=== PATIENT | male | born 1965 | race Caucasian/White ===

== ENCOUNTER 2023-11-08 08:33 | Outpatient (AMB) | payer OTHER, SELFPAY ==
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
[2023-11-08 08:39] VITALS: BP 118/78; PULSE 71; O2SAT 95; BMI 30.9
== END 2023-11-08 09:50 | disposition home or self-care (01) ==
PROVIDERS: PCP Internal Medicine; Visit Provider Nurse Practitioner Family
DX: H53.9 Unspecified visual disturbance (principal); R51.9 Headache, unspecified; G47.19 Other hypersomnia; R06.83 Snoring; R42 Dizziness and giddiness
CPT/HCPCS: 99204

== ENCOUNTER → 2023-11-08 08:33 | Outpatient (BNVA) | payer OTHER, SELFPAY | PROVIDERS: PCP Internal Medicine; Visit Provider Nurse Practitioner Family | DX: H53.9 Unspecified visual disturbance (principal); R51.9 Headache, unspecified; G47.19 Other hypersomnia; R06.83 Snoring; R42 Dizziness and giddiness | CPT/HCPCS: 99202 ==

== ENCOUNTER 2023-12-03 15:13 | Outpatient (REF) | payer BC, SELFPAY ==
--- NOTE | ~2023-12-03 | MR_ITS ---
EXAMINATION: MR BRAIN WITHOUT AND WITH CONTRAST CLINICAL INFORMATION: Headache COMPARISON: None TECHNIQUE: Multiplanar multisequence MR imaging of the brain was obtained without and following the administration of 9 mL Gadavist intravenous contrast. FINDINGS: There is no acute infarct on diffusion-weighted imaging. There is no intracranial hemorrhage on iron-sensitive imaging. No extra-axial collection or mass effect/herniation. Several scattered foci of T2/FLAIR hyperintense signal in the supratentorial white matter with frontal lobe predominance. The 7th and 8th cranial nerve complexes are symmetric in course, caliber, and enhancement characteristics. Major inner ear structures including the cochlea, semicircular canals, and vestibule are symmetric in morphology and demonstrate normal CSF signal. No enhancing intracanalicular or cerebellopontine angle mass lesion is visualized. No hydrocephalus. The ventricles are normal in morphology and size. No abnormal parenchymal or extra-axial enhancement. The major flow voids at the skull base are preserved. Partially empty sella. The cerebellar tonsils are normally positioned. The craniocervical junction is normal. Marrow signal is within normal limits. The visualized soft tissues are without significant abnormality. Right maxillary sinus retention cyst. Mild scattered paranasal sinus mucosal thickening. Small fluid in the right petrous apex. MR/MR head/brain wo/w con IMPRESSION: 1. Several scattered foci of T2/FLAIR hyperintense signal in the supratentorial white matter with frontal lobe predominance are nonspecific but can be seen in the setting of migraine and/or chronic microvascular ischemia. 2. Otherwise unremarkable contrast-enhanced MRI of the brain. Electronically signed by: Maco Lopez MD 12/19/2023 08:25 PM EDT
[2023-12-03] MEDS: gadobutroL 10 ML VIAL IVPUSH (16:21)
== END 2023-12-03 15:14 | disposition home or self-care (01) ==
LOC: HO.MRI 15:13
PROVIDERS: PCP Internal Medicine; Visit Provider Nurse Practitioner Family
DX: R51.9 Headache, unspecified (principal); H53.9 Unspecified visual disturbance; R42 Dizziness and giddiness
CPT/HCPCS: 70553; A9585

== ENCOUNTER 2024-05-15 09:04 | Outpatient (AMB) | payer BC, SELFPAY ==
[2024-05-15 09:05] VITALS: BP 110/70; PULSE 69; O2SAT 97; BMI 31.2
--- NOTE | 2024-05-15 09:05 | A.OFFVIS_ITS ---
Vital Signs 05/15/24 09:05 Height 5 ft 9 in Weight 211 lb BMI 31.2 BP 110/70 Blood Pressure Location Lt brachial Position Sitting Pulse 69 Pulse Source Pulse Oximeter Pulse Oximetry (%) 97 Oxygen Delivery Method Room Air Intake Visit Reasons: Follow Up 6mo Intake Note: Patient presents follow up Headache/Sleep. MRI in chart, HST scheduled for 06/13/24 Toys Inspector Required: No Allergies Penicillins Allergy (Mild, Verified 05/15/24 09:06) Rash Medication List - Last Reconciled 05/15/24 by NGOC Ramirez rizatriptan 5 - 10 mg (0.5 - 1 x 10 mg) PO Q2H PRN 30 days sumatriptan succinate 50 - 100 mg orally at onset of headache, may repeat in 2 hrs PRN; max 2 tabs per day or 4 tabs/week (may take with Ibuprofen) 30 days HPI Comments Details: Chief Complaint Concerns about effectiveness of current migraine treatment and MRI findings. History of Present Illness The patient is a 58-year-old male presenting with migraine with visual aura. Migraine to occur episodically, last attack in February- triggered by bright screen, and the attack prior was in the fall. Initial treatment with sumatriptan was partially effective, however the 2nd attack was not as responsive to sumatriptan even though taken at the earliest sign. Headaches often triggered by visual stimuli. Recent MRI revealed white matter changes, likely linked to migraines. No significant past head injuries documented. Underlying conditions include hypercholesterolemia and pre-diabetes, leading patient make dietary adjustments and achieve a recent weight reduction. patient had a recent comprehensive eye exam, which was reassuring terms of his visual aura symptoms. He has not yet had the home sleep study, due to miscommunication with our sleep department. He is scheduled for a home sleep study near future. interval headache alleviating factors: sumatriptan, naproxen, ibuprofen interval headache aggravating factors: bright lights, holiday stress, sporadic eating patterns Typical headache characteristics: Prodrome symptoms: denies Aura: Sees spots, flashes, blurry vision in his left eye x's a few minutes. Within 10 minutes headache starts. Pain intensity: severe, becomes more severe when sneezes, coughs, moves his head. Location, quality, characteristics: pressure in the mid-center of top of head. Associated symptoms: photophobia, not right in space dizziness, activity intolerance. Postdrome: none after 3-4 days. Triggers: stress Denies: Onset of headache triggered by positional changes, Valsalva, Exertion:, Sexual activity. Time of day: No specific time of day Duration and Frequency: Occurs 1-2 x's per month, and last 3-4 days Review of Systems - General: Reports weight loss of 10 pounds. - Neurological: Reports migraines with visual disturbances; denies focal neurological symptoms. - Endocrine: Reports borderline high blood sugar. Food The patient has been actively modifying his diet to address elevated cholesterol and pre-diabetes. Dietary changes include increased intake of healthier options and careful meal planning to regulate blood sugar levels. He reports a reduction in portion sizes and increased frequency of meals to balance metabolism. Employment - Regular international travel noted, impacting lifestyle habits. Diagnostic results - MRI: White matter lesions indicative of migraine-related changes, no masses detected. - Blood work: Elevated cholesterol and borderline glucose levels reported. - Sleep Study: Scheduled for next month. [facility] Surgical History History of back surgery H/O prostatectomy History of surgical removal of meniscus of knee Family History Father HTN (hypertension) Hyperlipidemia Heart disease Prostate CA Mother Stroke Social History Alcohol intake: current Patient Tobacco Use Status: Never used Tobacco Physical Exam Vital Signs: Last Vital Signs Pulse 69 05/15/24 09:05 BP 110/70 05/15/24 09:05 Pulse Ox 97 05/15/24 09:05 Oxygen Delivery Method Room Air 05/15/24 09:05 BMI result Body Mass Index 31.2 Const Orientation/consciousness: patient oriented x3 Resp Effort & Inspection: normal respiratory effort and able to speak in complete sentences Neuro General: patient oriented x3 Cranial nerves: Yes CN's II-XII intact bilaterally Cognition (Neuro): normal cognition Gait exam (Neuro): Normal gait present Motor exam (neuro): 5/5 motor strength present throughout Pupils: Normal pupillary reactivity/response: bilateral Psych Appearance: grossly normal Mental Status: mental status grossly normal Speech and movement: Normal speech and movement present Results Reviewed Results Reviewed: MR/MR head/brain wo/w con IMPRESSION: 1. Several scattered foci of T2/FLAIR hyperintense signal in the supratentorial white matter with frontal lobe predominance are nonspecific but can be seen in the setting of migraine and/or chronic microvascular ischemia. 2. Otherwise unremarkable contrast-enhanced MRI of the brain. Assessment & Plan Assessment & Plan (1) Visual aura: Code(s): H53.9 - Unspecified visual disturbance Category: Medical (2) Worsening headaches: Comment: Likely migraine w/ aura, vestibular migraine w/ aura, however need to exclude secondary causes d/t headache and visual aura started in pt's late 40s. Code(s): R51.9 - Headache, unspecified Category: Medical (3) Excessive daytime sleepiness: Comment: ESS 10 Code(s): G47.19 - Other hypersomnia Category: Medical (4) Snoring: Code(s): R06.83 - Snoring Category: Medical (5) Dizziness: Code(s): R42 - Dizziness and giddiness Category: Medical (6) Excessive daytime sleepiness: Comment: ESS 10 Code(s): G47.19 - Other hypersomnia Category: Medical (7) Snoring: Code(s): R06.83 - Snoring Category: Medical Plan Discussion Notes During our visit, we reviewed the MRI findings, highlighting the white matter changes likely associated with migraines, and reassured that these findings are common and generally asymptomatic. We discussed alternative migraine management with rizatriptan as a preferred option over sumatriptan for effectiveness, highlighting triptan limitations and alternative delivery systems if necessary. Examination of metabolic markers warranted and lifestyle modifications endorsed for cholesterol and pre-diabetes control. Risks associated with untreated sleep apnea were acknowledged, and a follow-up study has been scheduled. Patient instructed on dietary changes, medication adherence, and the strategy for using triptans, along with scenarios for medical follow-up. Patient was informed and verbally consented to the use of an ambient scribe for clinic note documentation during this visit. Patient Instructions - specific instructions as below - Continue dietary modifications to address hypercholesterolemia and blood sugar. - Monitor headache occurrences and response to rizatriptan. - Carry migraine medications when traveling. - Follow up with your primary care physician about blood sugar and cholesterol. - Attend the scheduled sleep study to evaluate for sleep apnea. - Contact the clinic if migraines worsen or triptan effectiveness declines. For overall headache management: * Optimize good self-care, including but not limited to maintaining a healthy diet, adequate fluid intake, adequate sleep, and engaging in regular physical activity. * Track headaches, especially after any treatment regimen changes. [employer] is one of many headache tracking apps. * Information previously shared on non-pharmacological interventions which may help to alleviate headache attack burden. * For light sensitivity: Patient may benefit from trying blue light filtering glasses, green glasses, green light therapy. * Monitor dizziness. * Future considerations: Vestibular tx. For acute headache treatment: Discussed importance of taking acute medications at the first sign of headache, however stressed importance of avoiding acute medication overuse (especially with combined headache medications). Hold Sumatriptan 100mg tab, 1/2 - 1 tab (50-100mg)- has not been consistently effective Trial Rizatriptan 10mg tab, 1/2 - 1 tab (5-10mg) at onset of headache, may repeat in 2 hours. Max of 2 tabs (200mg) per 24 hours. May adjunct with OTC Tylenol 650mg every 4 hours, Ibuprofen (liquigel) 600mg every 6 hours, or Naproxen (liquigel) 440mg every 12 hrs as needed. Potential adverse effects of triptans, include but are not limited to nausea, fatigue, chest tightness/tingling (usually passes within a few minutes), medication overuse headaches. Previous acute migraine medication trials: Sumatriptan 100 mg-not consistently effective Acute migraine medication contraindications: None at this time Future considerations: Sumatriptan nasal spray. Patient notes she would not be interested in sumatriptan injection at this point. For headache prevention medication: Patient may hold Riboflavin 400mg qam May hold Magnesium 400mg qhs Previous migraine prevention medication trials: None Migraine prevention medication contraindications: None at this time F/u upon review of above. Pt to follow-up in 6 months or sooner prn. Medications: New rizatriptan max 2 tabs per day or 4 tabs per week 5 - 10 mg (0.5 - 1 x 10 mg) PO Q2H PRN 12 tabs 3RF migraine headache 30 days Coding Level of Care Code Est Pt Level 4 (43669) Diagnoses Visual aura H53.9 Worsening headaches R51.9 Excessive daytime sleepiness G47.19 Snoring R06.83 Dizziness R42
--- OUTSIDE RECORDS SUMMARY | 2024-05-15 09:56 | XMS_ITS | Data Portability ---
Author Organization [employer], [address] Address [address] [place] [id number] Assessment No assessment recorded. Plan of Treatment Reminders Order Date Submit Date Provider Last Modified By Organization Details Last Modified Time Details Appointments None record ed. Lab None record ed. Referral None record ed. Procedures None record ed. Surgeries None record ed. Imaging None record ed. Medication Orders None record ed. Patient TargetsNo targets recorded. Patient InstructionsNo instructions recorded. Reason for Referral None Reported. Medical Equipment None Reported. Medications Name Sig Start Date Stop Date Status Note LastModified by Organization Details LastModified Time cyclobenzapri ne 10 mg tablet TAKE 1 TABLET BY MOUTH TWICE A DAY NEEDED DO NOT DRINK ALCOHOL OR DRIVE WHILE TAKING THIS active Not Available Not Available No t Available prednisone 20 mg tablet TAKE 3 TABLETS BY MOUTH DAILY active Not Available Not Available No t Available ciprofloxacin 500 mg tablet TAKE 1 TABLET BY MOUTH IN THE MORNING AND EVENING OF PROSTATE BIOPSY active Not Available Not Available No t Available sildenafil 100 mg tablet TAKE ONE TABLET BY MOUTH EVERY DAY NEEDED active Not Available Not Available No t Available ibuprofen 600 mg tablet TAKE 1 TABLET BY MOUTH TWICE A DAY NEEDED FOR PAIN active Not Available Not Available No t Available fluticasone propionate 50 mcg/actuation nasal spray,suspens ion SPRAY 1 SPRAY BY [address]AL ROUTE EVERY DAY active Not Available Not Available No t Available loratadine 10 mg tablet TAKE 1 TABLET BY MOUTH EVERY DAY active Not Available Not Available No t Available diazepam 5 mg tablet TAKE 1 TABLET BY MOUTH PRIOR TO PROCEDURE active Not Available Not Available No t Available alfuzosin ER 10 mg tablet,extend ed release 24 hr TAKE 1 TABLET BY MOUTH EVERYDAY AT BEDTIME active Not Available Not Available N ot Available tadalafil 20 mg tablet TAKE 1 TABLET BY MOUTH NEEDED active Not Available Not Available No t Available ProAir HFA 90 mcg/actuation aerosol inhaler INHALE 1 TO 2 PUFFS BY MOUTH EVERY 4 TO 6 HOURS NEEDED FOR COUGH active Not Available Not Available No t Available Vitals None Recorded Social History None recorded. Functional Status None recorded. Mental Status None recorded. Family History Nothing Reported. Medical History No medical history recorded. Past Encounters Encounter ID Performer Location Encounter Start Date Encounter Closed Date Diagnosis/Indication Diagnosis SNOMED-CT Code Diagnosis ICD10 Code Diagnosis Note [id number] [place] [address] 09/26/2021 10:53:58 09/26/2021 14:49:29 [id number] [place] [address] 03/25/2020 16:50:20 03/25/2020 19:25:18 Health Concerns Section Related Observation LastModified by Organization Detai ls LastModified Time None Recorded Concern Status LastModified by Organization Details LastModified Time None Recorded Advance Directives Directive None Recorded Payers Encounter Date Sequence Insurance Name Policy Number Policy Obrien Covered Member ID Obrien Member ID Guarantor Name 03/25/2020 1 [facility] (MEDICAID REPLACEMENT - HMO) GABRIELLE Price [id number] Sven Price 09/26/2021 1 [facility] (MEDICAID REPLACEMENT - HMO) GABRIELLE Price [id number] Sven Price
--- OUTSIDE RECORDS SUMMARY | 2024-05-15 09:56 | XMS_ITS | Encounter Summary ---
Author Organization [facility] Address [address] [place] [address] Care Team Providers Care [place] [facility] Name Role Phone Dulce Booker MD Primary Care Provider [phone] Reason for Referral * Consultation (Routine) - Pending Review Specialty Diagnoses / Procedures Referred By Contac t Referred To Contact Vascular Surgery Diagnoses Varicose veins of calf Dulce Booker MD [address] [place] [address] Phone: tel: fax: Referral ID Status Reason Start Date Expiration Date Visits Requested Visits Authorized [id number] Pending Review Specialty Services Required 04/19/2024 04/19/2025 1 1 * Consultation (Routine) - Authorized Specialty Diagnoses / Procedures Referred By Hiral hunt Referred To Contact Hematology and Oncology Diagnoses Family history of prothrombin gene mutation Dulce Booker MD [address] [place] [phone] Phone: tel: fax: [facility] Hematology Oncology [address] [place] [phone] Phone: tel: fax: Referral ID Status Reason Start Date Expiration Date Visits Requested Visits Authorized [id number] Authorized Specialty Services Required 04/19/2024 04/19/2025 1 1 * Imaging (Routine) - Authorized Specialty Diagnoses / Procedures Referred By Hiral hunt Referred To Contact Diagnoses Leg pain, bilateral Procedures Vascular US duplex lower extremity venous insufficiency bilateral Dulce Booker MD [address] [place] [phone] Phone: tel: fax: [facility] Referral ID Status Reason Start Date Expiration Date V isits Requested Visits Authorized [id number] Authorized 04/19/2024 04/19/2025 1 1 Reason for Visit * Reason Comments Follow-up Encounter Details Date Type Department Care Team ([facility] st Contact Info) Description 04/19/2024 8:30 AM EST Office Visit Adult Medicine [address] [phone] Dulce Booker MD [address] [place] [phone] Varicose veins of calf (Primary Dx); Family history of prothrombin gene mutation; Mixed hyperlipidemia; Overweight (BMI 25.0-29.9); Leg pain, bilateral Social History Tobacco Use Types Packs/Day Years Used Date Smoking Tobacco: Never Smokeless Tobacco: Never Tobacco Cessation:Counseling Given: Not Answered Alcohol Use Standard Drinks/Week Comments Yes 11.7 (1 standard drink = 0.6 oz pure alcohol) Housing Instability Answer Date Recorde d Are you worried that in the next 2 months you may not have stable housing? No 04/18/2024 Food Access & Nutrition Answer Date Rec orded Do you have access to a vari ety of food including fruits and vegetables? Yes 04/18/2024 Access to Healthcare Answer Date Record ed Within the last 3 months, ho w many times did you visit the emergency department for your medical care? 0 04/18/2024 Health Literacy Answer Date Recorded How often do you need to hav e someone help you when you read instructions, pamphlets, or other written material from your doctor or pharmacy? Never 04/18/2024 Caregiver: How often do you need to have someone help you when you read instructions, pamphlets, or other written material from your doctor or pharmacy? Not on file 04/18/2024 Financial Risk Answer Date Recorded How hard is it for you to pa y for the very basics like food, housing, medical care, and air conditioning / heating? Somewhat hard 04/18/2024 Transportation Answer Date Recorded Has the lack of transportati on kept you from meetings, work, or from getting things needed for daily living? No Has the lack of transportati on kept you from medical appointments or from getting medications? No 04/18/2024 Social Isolation Answer Date Recorded How often do you feel lonely or isolated from th ose around you? Never 04/18/2024 Food Risk Answer Date Recorded Within the past 12 months we worried whether our food would run out before we got money to buy more. Never true 04/18/2024 Within the past 12 months th e food we bought just didn't last and we didn't have money to get more. Never true 04/18/2024 Dependent Care Answer Date Recorded Do you need help finding or paying for care for your loved ones. For example, child guidance counselor or elderly care for an older adult? No 04/18/2024 Education Answer Date Recorded Do you think completing more education or training, like finishing a GED, going to college, or learning a trade, would be helpful for you? No 04/18/2024 Employment and Income Answer Date Recor ded During the last four weeks, have you been actively looking for work? No 04/18/2024 Living Situation Answer Date Recorded What is your living situation? 0 04/18/2024 Sex and Gender Information Value Date Recorded Sex Assigned at Not on file Legal Sex Male 8:51 AM EST Gender Identity Not on file Sexual Orientation Not on file documented as of this encounter Last Filed Vital Signs Vital Sign Reading Time Taken Comments Blood Pressure 112/68 04/19/2024 8:38 AM EST Pulse 74 04/19/2024 8:38 AM EST Temperature 36.2 ??C (97.2 ??F) 04/19/2024 8:38 AM ES T Respiratory Rate 16 04/19/2024 8:38 AM EST Oxygen Saturation - - Inhaled Oxygen Concentration - - Weight 98 kg (216 lb) 04/19/2024 8:38 AM EST Height 175.3 cm (5' 9 ) 04/19/2024 8:38 AM EST Body Mass Index 31.9 04/19/2024 8:38 AM EST documented in this encounter Ordered Prescriptions Prescription Sig Dispense Quantity Refills Last Filled Start Date End Date rosuvastatin (CRESTOR) 5 mg tablet Take 1 tablet (5 mg total) by mouth 1 (one) time each day. 90 each 1 04/19/2024 10/16/2024 documented in this encounter Progress Notes * Dulce Booker MD - 04/19/2024 8:30 AM ESTAddended by: DULCE BOOKER on: 04/19/2024 05:35 PM Modules accepted: Orders * Dulce Booker MD - 04/19/2024 8:30 AM EST Images from the original note were not included. CHIEF COMPLAINT: Follow-up IDENTIFIER: Sven Price is a 58 y.o. old male. HPI: Patient is a 58-year-old male with history of adenocarcinoma of prostate who is here for a follow-up visit. Hyperlipidemia- stopped taking rosuvastatin over 6 months, he reports that he just stopped taking it did not have any side effects with the medication. Migraine headaches-he is currently taking sumatriptan as needed, did see [facility] and was ordered for a sleep study, reports that he was scheduled but the date did not work for him so he is waiting to be scheduled a sleep study at this time. MRI was ordered which showed several scattered T2 flair hyperintense signals with frontal lobe predominance which are nonspecific but can be seen in setting of migraine headaches. Patient also underwent eye exam at [facility] eye on 03/27/2024. Per ophthalmology note classic migraine continue appointments with neurology. No visual field defects. No optic neuropathy. Patient was found to have nuclear sclerosis evidence of hypertensive retinopathy. Family h/o Factor II gene mutation-he reports that his mom was diagnosed with a factor II gene mutation as she had a blood clot in her 20s, it was advised that the family gets tested as well. Varicose veins-reports a family history of varicose veins, reports he himself has varicose veins onbilateral calves, usually does not get swelling with this but does report heaviness in legs after prolonged standing. Prostate adenocarcinoma-following with [facility] next appointment 05/08/2024 Seborrheic dermatitis/rosacea- following with [facility] ROS: Review of systems: Pertinent items are noted in HPI PAST MEDICAL HISTORY: Patient Active Problem List Diagnosis Date Noted Multiple thyroid nodules 03/18/2024 Prostate carcinoma (CMS/HCC) 04/29/2022 Elevated PSA 12/17/2020 History of COVID-19 03/25/2020 Vocal cord paresis 02/13/2020 Chronic back pain 12/07/2019 Benign prostatic hyperplasia 12/07/2019 Erectile dysfunction 11/06/2017 Overweight (BMI 25.0-29.9) 11/06/2017 Obstructive sleep apnea 01/30/2017 Hyperlipidemia 07/31/2015 Chest pain 10/05/2010 SOCIAL HISTORY: Social History Tobacco Use Smoking status: Never Smokeless tobacco: Never Substance Use Topics Alcohol use: Yes Alcohol/week: 11.7 standard drinks of alcohol FAMILY HISTORY: Family Status Relation Name Status Mother Alive varicose veins Father Alive [place] 68 Uncle (Not Specified) Neg Hx (Not Specified) MGM MGF PGM PGF No partnership data on file Family History Problem Relation Name Age of Onset Other (Other: dvt) Mother Heart attack Father smoker Prostate cancer Father Hypertension Father Heart attack Uncle Diabetes Neg Hx Other cancer Neg Hx ACTIVE MEDICATIONS: Outpatient Medications Marked as Taking for the 04/19/24 encounter (Office Visit) with Dulce Booker MD Medication Sig Dispense Refill ketoconazole (NIZORAL) 2 % shampoo Apply topically. SUMAtriptan (IMITREX) 100 mg tablet Take 1 tablet (100 mg total) by mouth 1 (one) time if needed for migraine. triamcinolone (KENALOG) 0.025 % cream Apply topically. ALLERGIES: Penicillin g potassium PHYSICAL EXAM: Blood pressure 112/68, pulse 74, temperature 36.2 ??C (97.2 ??F), temperature source Temporal, resp. rate 16, height 1.753 m (69 ), weight 98 kg (216 lb). Body mass index is 31.9 kg/m??. Plan is deferred until next visit APPEARANCE: Alert and in no acute distress EYES: PERRLA, conjunctiva and sclera normal HEART: RRR with normal S1 and S2, no murmurs, no gallops, no JVD appreciated LUNG: clear to auscultation bilaterally EXTREMITIES: Extremities warm and well perfused without clubbing, cyanosis, or edema NEURO: Awake, alert and oriented x 3 and Normal gait LABS: IMPRESSION: 1. Varicose veins of calf 2. Family history of prothrombin gene mutation 3. Mixed hyperlipidemia 4. Overweight (BMI 25.0-29.9) ASSESSMENT/PLAN: Sven was seen today for follow-up. Diagnoses and all orders for this visit: Varicose veins of calf (Primary) - Vascular US duplex lower extremity venous insufficiency bilateral; Future - Ambulatory referral to Vein Care; Future - CBC and differential; Future Family history of prothrombin gene mutation - Vascular US duplex lower extremity venous insufficiency bilateral; Future - Ambulatory referral to Hematology / Oncology; Future Mixed hyperlipidemia - Comprehensive metabolic panel; Future - Lipid panel with reflex to direct LDL; Future Overweight (BMI 25.0-29.9) - Hemoglobin A1c; Future Plan Patient is a 58-year-old male with history of adenocarcinoma of prostate who is here for a follow-up visit. Hyperlipidemia- stopped taking rosuvastatin over 6 months, he reports that he just stopped taking it did not have any side effects with the medication. Check lipid panel today Migraine headaches-he is currently taking sumatriptan as needed, did see [facility] and was ordered for a sleep study, reports that he was scheduled but the date did not work for him so he is waiting to be scheduled a sleep study at this time. MRI was ordered which showed several scattered T2 flair hyperintense signals with frontal lobe predominance which are nonspecific but can be seen in setting of migraine headaches. Patient also underwent eye exam at [facility] eye on 03/27/2024. Per ophthalmology note classic migraine continue appointments with neurology. No visual field defects. No optic neuropathy. Patient was found to have nuclear sclerosis evidence of hypertensive retinopathy. Continue follow-up with neurology Family h/o Factor II gene mutation-he reports that his mom was diagnosed with a factor II gene mutation as she had a blood clot in her 20s, it was advised that the family gets tested as well. Patienthas been referred to hematology. Patient does not have a personal history of blood clots, patient was advised regarding risk factors like prolonged immobilization, long distance travel which could put him at increased risk for clots advised if he is going to be traveling long distance to stay hydrated and to keep moving as much as possible. Patient verbalized understanding Varicose veins-reports a family history of varicose veins, reports he himself has varicose veins onbilateral calves, usually does not get swelling with this but does report heaviness in legs after prolonged standing. I have ordered a ultrasound of bilateral lower extremities for venous insufficiency as well as to rule out DVTs given family history of factor II mutation (he denies lower extremityswelling or redness), patient advised not to wear compression socks until ultrasound results are available if negative for DVTs would advise to use compression socks as well. I have also referred thepatient to vein care. Prostate adenocarcinoma-following with [facility] next appointment 05/08/2024 Seborrheic dermatitis/rosacea- following with [facility], on ketoconazole and triamcinolone topical Of note patient was also examined and questioned by my physician safety admin assistant student and is in agreement with this. No follow-ups on file. Orders Placed This Encounter Procedures CBC and differential Comprehensive metabolic panel Lipid panel with reflex to direct LDL Hemoglobin A1c Ambulatory referral to Hematology / Oncology Ambulatory referral to Vein Care Vascular US duplex lower extremity venous insufficiency bilateral No results found for this or any previous visit (from the past 672 hour(s)). Dulce Booker MD on 04/19/2024 at 9:26 AM EST documented in this encounter Plan of Treatment Upcoming Encounters Date Type Department Care Team (Late st Contact Info) Description 05/15/2024 10:30 AM EST Ancillary Procedure [facility] [address] [place] [phone] 05/16/2024 1:00 PM EST Office Visit [facility] Hematology Oncology [address] [place] [phone] Ivania-Yin Mak MD [address] [place] [phone] 06/21/2024 8:00 AM EDT Office Visit [address] [phone] Dulce Booker MD [address] [place] [phone] Scheduled Orders Name Type Priority Associated Diagnoses Order Schedule Vascular US duplex lower extremity venous insufficiency bilateral Vascular Ultrasound Routine Leg pain, bilateral 1 Occurrences starting 04/19/2024 until 04/19/2025 Scheduled Referrals Name Type Priority Associated Diagnoses Order Schedule Ambulatory referral to Hematology / Oncology Outpatient Referral Routine Family history of prothrombin gene mutation 1 Occurrences starting 04/19/2024 until 04/19/2025 Ambulatory referral to Vein Care Outpatient Referral Routine Varicose veins of calf 1 Occurrences starting 04/19/2024 until 04/19/2025 documented as of this encounter Results * Hemoglobin A1c (04/19/2024 10:02 AM EST) [facility] Hemoglobin A1C 5.8 <6.5 % LAB CHEMISTRY METHOD 04/19/2024 2:23 PM [facility] Mean Bld Glu Estim. 120 mg/dL LAB CHEMISTRY METHOD 04/19/2024 2:23 PM [facility] Blood Venous blood specimen / Unknown Venipuncture / Unknown 04/19/2024 10:02 AM EST 04/19/2024 10:02 AM EST us Dulce Booker MD LAB BLOOD ORDERABLES Final Resul t [facility] [address] [place] [address], * (ABNORMAL) Lipid panel with reflex to direct LDL (04/19/2024 10:02 AM EST) Pathologist [facility] Cholesterol 249(H) 0 - 200 mg/dL LAB CHEMISTRY METHOD 04/19/2024 12:28 PM EST [facility] Triglycerides 122 0 - 150 mg/dL LAB CHEMISTRY METHOD 04/19/2024 12:28 PM [facility] HDL 46 >=40 mg/dL LAB CHEMISTRY METHOD 04/19/2024 12:28 PM EST [facility] LDL Calculated 179(H) 0 - 100 mg/dL LAB CHEMISTRY METHOD 04/19/2024 12:28 PM [facility] VLDL Cholesterol Twin 24.4 mg/dL LAB CHEMISTRY METHOD 04/19/2024 12:28 PM [facility] Non HDL Chol. (LDL+VLDL) 203(H) <145 mg/dL LAB CHEMISTRY METHOD 04/19/2024 12:28 PM [facility] Chol/HDL Ratio 5.4(H) 0.0 - 4.4 LAB CHEMISTRY METHOD 04/19/2024 12:28 PM [facility] Blood Venous blood specimen / Unknown Venipuncture / Unknown 04/19/2024 10:02 AM EST 04/19/2024 10:02 AM EST us Dulce Booker MD LAB BLOOD ORDERABLES Final Resul t [facility] [address] [place] [address], [place] [phone] * (ABNORMAL) Comprehensive metabolic panel (04/19/2024 10:02 AM EST) Sodium 137 133 - 145 mmol/L LAB CHEMISTRY METHOD 04/19/2024 12:28 PM [facility] Potassium 4.9 3.5 - 5.5 mmol/L LAB CHEMISTRY METHOD 04/19/2024 12:28 PM [facility] Chloride 107 96 - 110 mmol/L LAB CHEMISTRY METHOD 04/19/2024 12:28 PM [facility] CO2 27 21 - 32 mmol/L LAB CHEMISTRY METHOD 04/19/2024 12:28 PM [facility] Anion Gap 3 3 - 11 LAB CHEMISTRY METHOD 04/19/2024 12:28 PM [facility] Glucose 107(H) 70 - 100 mg/dL LAB CHEMISTRY METHOD 04/19/2024 12:28 PM [facility] BUN 15 5 - 25 mg/dL LAB CHEMISTRY METHOD 04/19/2024 12:28 PM [facility] Creatinine 1.02 0.70 - 1.30 mg/dL LAB CHEMISTRY METHOD 04/19/2024 12:28 PM [facility] eGFR 85 >=60 mL/min/1. 73m2 LAB CHEMISTRY METHOD 04/19/2024 12:28 PM [facility] Comment:Calculation based on the??Chronic Kidney Disease Epidemiology Collaboration (CKD-EPI) equation refit??without adjustment for race. BUN/Creatinine Ratio 14.7 LAB CHEMISTRY METHOD 04/19/2024 12:28 PM [facility] Calcium 9.5 8.5 - 10.5 mg/dL LAB CHEMISTRY METHOD 04/19/2024 12:28 PM [facility] AST (SGOT) 22 10 - 42 unit/L LAB CHEMISTRY METHOD 04/19/2024 12:28 PM [facility] ALT (SGPT) 42 10 - 60 unit/L LAB CHEMISTRY METHOD 04/19/2024 12:28 PM [facility] Alkaline Phosphatase 66 42 - 121 unit/L LAB CHEMISTRY METHOD 04/19/2024 12:28 PM [facility] Total Protein 7.2 6.0 - 8.0 g/dL LAB CHEMISTRY METHOD 04/19/2024 12:28 PM [facility] Albumin 4.1 3.2 - 5.0 g/dL LAB CHEMISTRY METHOD 04/19/2024 12:28 PM [facility] Total Bilirubin 0.5 0.0 - 1.4 mg/dL LAB CHEMISTRY METHOD 04/19/2024 12:28 PM [facility] Blood Venous blood specimen / Unknown Venipuncture / Unknown 04/19/2024 10:02 AM EST 04/19/2024 10:02 AM EST us Dulce Christiano MD LAB BLOOD ORDERABLES Final Resul t [facility] [address] [place] [address], documented in this encounter Visit Diagnoses Diagnosis Varicose veins of calf- Primary Family history of prothrombin gene mutation Family history of other blood disorders Mixed hyperlipidemia Overweight (BMI 25.0-29.9) Overweight Leg pain, bilateral Pain in soft tissues of limb documented in this encounter Historical Medications * This list may reflect changes made after this encounter. triamcinolone (KENALOG) 0.025 % cream Apply topically. 03/11/2024 ketoconazole (NIZORAL) 2 % shampoo Apply topically. 03/11/2024 SUMAtriptan (IMITREX) 100 mg tablet Take 1 tablet (100 mg total) by mouth 1 (one) time if needed for migraine. 11/10/2023 added in this encounter Additional Health Concerns Assessment Noted Time PHQ-9 Depression Total Score: 6 04/18/19 25 10:24 PM EST documented as of this encounter Care Teams [place] [facility] Relationship Specialty Start Date End Date Dulce Booker MD [address] [place] [id number] PCP - General Internal Medicine 12/21/21 documented as of this encounter
--- OUTSIDE RECORDS SUMMARY | 2024-05-15 09:56 | XMS_ITS | Clinical Summary ---
Author Organization [facility] [address] [facility] Address [address] [place] [phone] Phone Care Team Providers Care Food Cooking Machine Operator Name Role Phone Dulce Alvarado MD Primary Care Provider [phone] Allergies Active Allergy Reactions Criticality Noted Date Comments Penicillin G Potassium Rash 05/04/2007 Medications SUMAtriptan (IMITREX) 100 mg tablet Take 1 tablet (100 mg total) by mouth 1 (one) time if needed for migraine. 11/10/2023 Active ketoconazole (NIZORAL) 2 % shampoo Apply topically. 03/11/2024 Active triamcinolone (KENALOG) 0.025 % cream Apply topically. 03/11/2024 Active rosuvastatin (CRESTOR) 5 mg tablet Take 1 tablet (5 mg total) by mouth 1 (one) time each day. 90 each 1 04/19/2024 Active Active Problems Problem Noted Date Diagnosed Date Multiple thyroid nodules 03/18/2024 Overview (03/18/2024): [facility] End[facility]ology; FNA 01/31 indeterminate, Afirma result benign (4% chance of false negative), recommend f/u u/s in 1yr Prostate carcinoma 04/29/2022 Elevated PSA 12/17/2020 History of COVID-19 03/25/2020 Overview (03/18/2024): 04/02 Vocal cord paresis 02/13/2020 Chronic back pain 12/07/2019 Benign prostatic hyperplasia 12/07/2019 Overview (03/18/2024): [facility] Erectile dysfunction 11/06/2017 Overweight (BMI 25.0-29.9) 11/06/2017 Obstructive sleep apnea 01/30/2017 Overview (03/18/2024): [facility] Polysomnogram: Date 01/24/2017; SE 78%; SM 79%; REM 25%; RDI 7 (AHI 6), worse in REM (RDI 22 - AHI 16), Central apneas 2; Obstructive apneas 3; Mixed apneas 0; hypopneas 26; RERAs 11; average oxygen saturation 95% (lowest 89% - without saturations <88% for 5% or more of study); PLMs 3. Hyperlipidemia 07/31/2015 Overview (03/18/2024): Last Assessment & Plan: The patient is now on full dose Crestor for his hyperlipidemia. Dietary modification and increased exercise certainly will help as well with long-term cardiovascular risk reduction. The patient is on board with this plan Chest pain 10/05/2010 Overview (03/18/2024): 09/07/10 cardiac cath with normal anatomy and nl LVF, normal ETT 07/2015 Encounters Date Type Department Care Team Description 05/01/2024 Telephone Adult Medicine [address] [address] Dulce Alvarado MD TESTING (NO DIAGNOSIS COVERED ) 04/19/2024 8:30 AM EST Office Visit Adult Medicine [address] [address] Dulce Alvarado MD Varicose veins of calf (Primary Dx); Family history of prothrombin gene mutation; Mixed hyperlipidemia; Overweight (BMI 25.0-29.9); Leg pain, bilateral from Last 3 Months Immunizations Name Administration Dates Next Due Influenza Quadravalent, MDCK , 0.5ml, preservative free (Flucelvax) 6mo and older 01/11/2023,12/06/2019 Influenza trivalent, with pr eservative (Fluzone; Afluria) 6mo and older 12/26/2013 Tdap Tetanus diptheria acell ular pertussis (Boostrix; Adacel) 7yo and older 05/28/2013 Surgical History Surgery Date Site/Laterality Comments BACK SURGERY PROCEDURE: HISTORICAL BACK SURGERY; COMMENT: Herniated L4 disk COLONOSCOPY 11/22/2016 PROCEDURE: HISTORICAL COLONOSCOPY; COMMENT: Normal screening examination KNEE SURGERY PROCEDURE: HISTORICAL KNEE SURGERY Medical History Medical History Date Comments Atypical chest pain DX:Atypical chest pain Multiple thyroid nodules DX:Mult iple thyroid nodules; COMMENT: needs repeat us 1 year in 2020 Family History Medical History Relation Name Comments Heart attack Father smoker Hypertension Father Prostate cancer Father Other: dvt Mother Heart attack Uncle Diabetes Neg Hx Other cancer Neg Hx Relation Name Status Comments Father Alive mi age 68 Maternal Grandfather Maternal Grandmother Mother Alive varicose veins Paternal Grandfather Paternal Grandmother Uncle Social History Tobacco Use Types Packs/Day Years [...] for your loved ones. For example, child psychologist or elderly care for an older adult? [...] on file Sexual Orientation Not on file Obstetrics History Last Filed Vital Signs Vital Sign Reading [...] Mass Index 31.9 04/19/2024 8:38 AM EST Plan of Treatment Upcoming Encounters Date Type Department Care Team (Late st Contact Info) Description 05/15/2024 10:30 AM EST Ancillary Procedure [facility] - [address] [place] [phone] 05/16/2024 1:00 PM EST Office Visit [facility] Hematology Oncology [address] [place] [address] Yin Brock MD [address] [place] [address] 06/21/2024 8:00 AM EDT Office Visit Adult Medicine [facility] [address] [place] [address] Dulce Alvarado MD [address] [place] [address] Health Maintenance Due Date Last Done Comments Hepatitis B Vaccines (1 of 3 - 19+ 3-dose series) 12/11/1983 Pneumococcal Vaccine: 50+ Years (1 of 2 - PCV) 12/11/1983 Pneumococcal Vaccine: Pediatrics (0 to 5 Years) and At-Risk Patients (6 to 64 Years) (1 of 2 - PCV) 12/11/1983 Zoster Vaccines (1 of 2) 12/11/1983 HIV Screening 02/13/2022 DTaP,Tdap,and Td Vaccines (2 - Td or Tdap) 05/29/2023 05/28/2013 COVID-19 Vaccine ( - 2023-2 5 season) 2023 01/29/2021, 07/23/2020, 06/25/2020 Influenza Vaccine (#1) 2024 , 12/06/2019, 12/26/2013 Postponed from 11/12/2023 (Patient Refused) Depression Screening 04/18/2025 04/18/2024 Social Influencers of Health Screening 04/18/2025 04/18/2024 Colorectal Cancer Screening: Colonoscopy 11/22/2026 11/22/2016 Cholesterol Screening (Lipid Panel) 04/19/2029 04/19/2024, 08/15/2022 RSV Immunization Patients 60 + Years Old (1 - 1-dose 75+ series) 12/11/2039 Hepatitis C Screening Completed 05/28/2013 HIB Vaccines Aged Out No longer eligi ble based on patient's age to complete this topic HPV Vaccines Aged Out No longer eligi ble based on patient's age to complete this topic Hepatitis A Vaccines Aged Out No long er eligible based on patient's age to complete this topic IPV Vaccines Aged Out No longer eligi ble based on patient's age to complete this topic MMR Vaccines Aged Out No longer eligi ble based on patient's age to complete this topic Meningococcal ACWY Vaccine Aged Out N o longer eligible based on patient's age to complete this topic Meningococcal B Vacine Aged Out No lo nger eligible based on patient's age to complete this topic RSV Immunization Patients Under 20 months Aged Out No longer eligible b ased on patient's age to complete this topic Varicella Vaccines Aged Out No longer eligible based on patient's age to complete this topic Procedures Procedure Name Priority Date/Time Associated Diagnosis Comments CBC WITH AUTO DIFFERENTIAL Routine 04/19/2024 10:02 AM EST Varicose veins of calf CBC AND DIFFERENTIAL Routine 04/19/2024 10:02 AM EST Varicose veins of calf COMPREHENSIVE METABOLIC PANEL Routine 04/19/2024 10:02 AM EST Mixed hyperlipidemia LIPID PANEL WITH REFLEX TO DIRECT LDL Routine 04/19/2024 10:02 AM EST Mixed hyperlipidemia HEMOGLOBIN A1C Routine 04/19/2024 10:02 AM EST Overweight (BMI 25.0-29.9) COLONOSCOPY Routine 11/22/2016 HEPATITIS C SCREENING Routine 05/28/2013 from Last 3 Months or Most Recently Relevant to Health Maintenance Results * (ABNORMAL) Lipid panel with reflex to direct LDL (04/19/2024 10:02 AM EST) Cholesterol 249(H) 0 - 200 mg/dL LAB CHEMISTRY METHOD 04/19/2024 12:28 PM EST [facility] Triglycerides 122 0 - 150 mg/dL LAB CHEMISTRY METHOD 04/19/2024 12:28 PM EST [facility] HDL 46 >=40 mg/dL LAB CHEMISTRY METHOD 04/19/2024 12:28 PM [facility] LDL Calculated 179(H) 0 - 100 [...] EST 04/19/2024 10:02 AM EST us Dulce Alvarado MD LAB BLOOD ORDERABLES Final Resul t [facility] [address] [place] [address], * (ABNORMAL) CBC auto differential (04/19/2024 10:02 AM EST) WBC 7.0 4.8 - 10.8 K/mcL LAB HEMETOLOGY METHOD 04/19/2024 12:04 PM [facility] RBC 4.80 4.50 - 5.50 M/mcL LAB HEMETOLOGY METHOD 04/19/2024 12:04 PM [facility] Hemoglobin 14.5 13.5 - 17.5 g/dL LAB HEMETOLOGY METHOD 04/19/2024 12:04 PM [facility] Hematocrit 45.1 42.0 - 54.0 % LAB HEMETOLOGY METHOD 04/19/2024 12:04 PM [facility] MCV 94.9 79.0 - 98.0 FL LAB HEMETOLOGY METHOD 04/19/2024 12:04 PM [facility] MCH 30.5 27.0 - 32.0 pcg LAB HEMETOLOGY METHOD 04/19/2024 12:04 PM [facility] MCHC 32.2 32.0 - 37.0 g/dL LAB HEMETOLOGY METHOD 04/19/2024 12:04 PM [facility] RDW 12.5 11.0 - 15.0 % LAB HEMETOLOGY METHOD 04/19/2024 12:04 PM [facility] Platelets 230 130 - 400 K/mcL LAB HEMETOLOGY METHOD 04/19/2024 12:04 PM [facility] MPV 12.5(H) 7.0 - 11.0 FL LAB HEMETOLOGY METHOD 04/19/2024 12:04 PM [facility] NRBC 0.0 <1.0 % LAB HEMETOLOGY METHOD 04/19/2024 12:04 PM [facility] NRBC Absolute 0.00 <0.10 K/mcL LAB HEMETOLOGY METHOD 04/19/2024 12:04 PM [facility] Neutrophils Relative 48.7 % LAB HEMETOLOGY METHOD 04/19/2024 12:04 PM [facility] Lymphocytes Relative 38.6 % LAB HEMETOLOGY METHOD 04/19/2024 12:04 PM [facility] Monocytes Relative 8.5 % LAB HEMETOLOGY METHOD 04/19/2024 12:04 PM [facility] Eosinophils Relative 3.3 % LAB HEMETOLOGY METHOD 04/19/2024 12:04 PM [facility] Basophils Relative 0.6 % LAB HEMETOLOGY METHOD 04/19/2024 12:04 PM [facility] Immature Granulocytes Relative 0.3 % LAB HEMETOLOGY METHOD 04/19/2024 12:04 PM [facility] Neutrophils Absolute 3.43 1.50 - 7.00 K/[facility] LAB HEMETOLOGY METHOD 04/19/2024 12:04 PM [facility] Lymphocytes Absolute 2.72 1.00 - 5.00 K/mcL LAB HEMETOLOGY METHOD 04/19/2024 12:04 PM [facility] Monocytes Absolute 0.60 0.20 - 1.00 K/mcL LAB HEMETOLOGY METHOD 04/19/2024 12:04 PM [facility] Eosinophils Absolute 0.23 0.00 - 0.50 K/[facility] LAB HEMETOLOGY METHOD 04/19/2024 12:04 PM [facility] Basophils Absolute 0.04 0.00 - 0.20 K/mcL LAB HEMETOLOGY METHOD 04/19/2024 12:04 PM [facility] Immature Granulocytes Absolute 0.02 0.00 - 0.03 K/[facility] LAB HEMETOLOGY METHOD 04/19/2024 12:04 PM [facility] Blood Venous blood specimen / Unknown Venipuncture / Unknown 04/19/2024 10:02 AM EST 04/19/2024 10:02 AM EST us Dulce Alvarado MD LAB BLOOD ORDERABLES Final Resul t [facility] [address] [place] [address], * Hemoglobin A1c (04/19/2024 10:02 AM EST) Hemoglobin A1C 5.8 <6.5 % LAB CHEMISTRY METHOD 04/19/2024 2:23 PM EST [facility] Mean Bld Glu Estim. 120 mg/dL LAB CHEMISTRY METHOD 04/19/2024 2:23 PM [facility] Blood Venous blood specimen / Unknown Venipuncture / Unknown 04/19/2024 10:02 AM EST 04/19/2024 10:02 AM EST us Dulce Alvarado MD LAB BLOOD ORDERABLES Final Resul t [facility] [address] [place] [address], * (ABNORMAL) Comprehensive metabolic panel (04/19/2024 10:02 [...] 10:02 AM EST 04/19/2024 10:02 AM EST Dulce Alvarado MD LAB BLOOD ORDERABLES Final Resul t [facility] [address] [place] [address], * Colonoscopy (11/22/2016) Pathologist [facility] Colonoscopy No interpretation , abstracted Anatomical Region Laterality Modality Other Historical Provider HEALTH MAINTENANCE Final Result * Hepatitis C Screening (05/28/2013) Pathologist [facility] Hepatitis C Screening Abstracted Historical Provider HEALTH MAINTENANCE Final Result from Last 3 Months or Most Recently Relevant to Health [place] [id number] [facility]) Care Teams Food Cooking Machine Operator Relationship Specialty Start Date End Date Dulce Alvarado MD [address] [place] [phone] PCP - General Internal Medicine 12/21/21
--- OUTSIDE RECORDS SUMMARY | 2024-05-15 09:57 | XMS_ITS | Encounter Summary ---
Author Organization [facility] Address [address] [place] [address] Care Team Providers Care Sharepoint Solutions Architect Name Role Phone Dulce Alvarado MD Primary Care Provider [phone] Reason for Visit * Reason Onset Date Comments TESTING 05/01/2024 NO DIAGNOSIS COV ERED Encounter Details Date Type Department Care Team ([facility] st Contact Info) Description 05/01/2024 Telephone Adult Medicine [facility] [address] [place] [phone] Dulce Alvarado MD [address] [place] [address] TESTING (NO DIAGNOSIS COVERED ) Social History Tobacco Use Types Packs/Day Years Used Date Smoking Tobacco: Never Smokeless Tobacco: Never Alcohol Use Standard Drinks/Week Comments Yes 11.7 [...] for your loved ones. For example, child care aide or elderly care for an older adult? [...] on file documented as of this encounter Progress Notes * Dulce Alvarado MD - 05/07/2024 7:12 PM EST Diagnosis updated * Reshma Earl - 05/07/2024 1:16 PM EST Unfortunately, the code associated with the test is not covered (I83.90). Please update prior to patients 05/15/24 appointment or patient may need to sign a waiver. Thank you! [facility] Scheduling * Dulce Alvarado MD - 05/02/2024 7:44 AM EST It is also linked to I83.90- Varicose veins, please review if this is covered * Bri Baer - 05/02/2024 6:43 AM EST We received the order you placed for this patient to have a VENOUS US and the appointment is scheduled for 05/15/24. The order has an associated diagnosis of Family history of prothrombin gene mutation [Z83.2]. This diagnosis is not considered to support medical necessity for the test ordered according to insurance guidelines. Please review to see if there is another diagnosis, including signs/symptoms, that is appropriate to be associated with this test and update the associated diagnosis on the current o rder. If there is not a covered diagnosis associated with this test within 24hrs of the scheduled appointment, the patient will be notified they will need to sign a waiver accepting responsibility for payment if their insurance denies it. This may result in a cancellation of the test. Thank you, [facility] Scheduling * Dulce Alvarado MD - 05/01/2024 4:30 PM EST Please double check as the order I placed was for a venous duplex of lower extremities and not an echo * Bri Baer - 05/01/2024 1:29 PM EST We received the order you placed for this patient to have an ECHOCARDIOGRAM and the appointment is scheduled for 05/15/24. The order has an associated diagnosis of Varicose veins of calf [I83.90]. This diagnosis is not considered to support medical necessity for the test ordered according to insurance guidelines. Please review to see if there is another diagnosis, including signs/symptoms, that is appropriate to be associated with this test and update the associated diagnosis on the current o rder. If there is not a covered diagnosis associated with this test within 24hrs of the scheduled appointment, the patient will be notified they will need to sign a waiver accepting responsibility for payment if their insurance denies it. This may result in a cancellation of the test. Thank you, [facility] Scheduling documented in this encounter Plan of Treatment Upcoming Encounters Date Type Department Care Team (Late st Contact Info) Description 05/15/2024 10:30 AM EST Ancillary Procedure [facility] - [address] [place] [address] 05/16/2024 1:00 PM EST Office Visit [facility] Hematology Oncology [address] [place] [address] Yin Brock MD [address] [place] [address] 06/21/2024 8:00 AM EDT Office Visit Adult [address] [phone] Dulce Alvarado MD [address] [place] [phone] documented as of this encounter Visit Diagnoses Not on filedocumented in this encounter Additional Health Concerns Assessment Noted Time PHQ-9 Depression Total Score: 6 04/18/19 25 10:24 PM EST documented as of this encounter Care Teams Sharepoint Solutions Architect Relationship Specialty Start Date End Date Dulce Alvarado MD [address] [place] [id number] PCP - General Internal Medicine 12/21/21 documented as of this encounter
== END 2024-05-15 09:58 | disposition home or self-care (01) ==
PROVIDERS: PCP Internal Medicine; Visit Provider Nurse Practitioner Family
DX: H53.9 Unspecified visual disturbance (principal); R51.9 Headache, unspecified; G47.19 Other hypersomnia; R06.83 Snoring; R42 Dizziness and giddiness
CPT/HCPCS: 99214

== ENCOUNTER → 2024-05-15 09:04 | Outpatient (BNVA) | payer BC, SELFPAY | PROVIDERS: PCP Internal Medicine; Visit Provider Nurse Practitioner Family ==

== ENCOUNTER → 2024-06-13 09:58 | Outpatient (REF) | payer BC, SELFPAY ==
--- OUTSIDE RECORDS SUMMARY | 2024-06-13 10:42 | XMS_ITS | Clinical Summary ---
Author Organization [facility] Address [address] [place] [phone] Phone Care Team Providers Care Hydraulic Technician Name Role Phone Dulce Alvarado MD Primary Care Provider [phone] Allergies Active Allergy Reactions Criticality Noted Date [...] Date Multiple thyroid nodules 03/18/2024 Overview (03/18/2024): [facility] Endocrinology; FNA 01/31 indeterminate, Afirma result [...] Encounters Date Type Department Care Team Description 05/16/2024 1:00 PM EST Office Visit [facility] Hematology Oncology [address] [place] [phone] Tannaramonia-Iy Yin bennett MD Family history of prothrombin gene mutation 05/16/[address] [facility] Hematology Oncology [address] [place] [phone] Ivania-Iy Yin bennett MD 05/16/[address] [facility] Hematology Oncology [address] [place] [phone] Ivania-Iy Yin bennett MD 05/15/2024 10:30 AM EST Ancillary Procedure [facility] [address] [phone] Leg pain, bilateral 05/01/2024 Telephone Adult Medicine [address] [phone] Dulce Alvarado MD TESTING (NO DIAGNOSIS COVERED ) 04/19/2024 8:30 AM EST Office Visit Adult [address] [phone] Dulce Alvarado MD Varicose veins of calf [...] for your loved ones. For example, child protective investigator or elderly care for an older adult? [...] Sign Reading Time Taken Comments Blood Pressure 108/65 05/16/2024 1:13 PM EST Pulse 70 05/16/2024 1:13 PM EST Temperature 36.7 ??C (98.1 ??F) 05/16/2024 1:13 PM ES T Respiratory Rate 16 04/19/2024 8:38 AM EST Oxygen Saturation 97% 05/16/2024 1:13 PM EST Inhaled Oxygen Concentration - - Weight 95.3 kg (210 lb) 05/16/2024 1:13 PM EST Height 170.2 cm (5' 7 ) 05/16/2024 1:13 PM EST Body Mass Index 32.89 05/16/2024 1:13 PM EST Plan of Treatment Upcoming Encounters Date Type Department Care Team (Late st Contact Info) Description 06/21/2024 8:00 AM EDT Office Visit Adult Medicine [address] [phone] Dulce Alvarado MD [address] [place] [phone] 07/29/2024 9:00 AM EDT Consult Vascular Surgery - [place] [address] [phone] Florencoi Muhammad MD [address] [address] Health Maintenance Due Date Last Done Comments [...] Td or Tdap) 05/29/2023 05/28/2013 COVID-19 Vaccine (4 - 2023-2 5 season) 2023 01/29/2021, 07/23/2020, 06/25/2020 Influenza Vaccine (#1) 2024 , 12/06/2019, 12/26/2013 Postponed from 11/12/2023 (Patient Refused) Depression Screening 04/18/2025 04/18/2024 Social Influencers of Health Screening 04/18/2025 04/18/2024 Colorectal Cancer Screening: Colonoscopy 11/22/2026 11/22/2016 Cholesterol Screening (Lipid Panel) 04/19/2029 04/19/2024, 08/15/2022 RSV Immunization Adult Patients (1 - 1-dose 75+ series) 12/11/2039 Hepatitis [...] Procedure Name Priority Date/Time Associated Diagnosis Comments PROTHROMBIN 55993U MUTATION ANALYSIS Routine 05/17/2024 8:22 AM EST Family history of prothrombin gene mutation VAS US DUPLEX LOWER EXT VENOUS INSUFFICIENCY BILATERAL Routine 05/15/2024 11:06 AM EST Leg pain, bilateral EXTERNAL VASCULAR ULTRASOUND 05/15/2024 CBC WITH AUTO DIFFERENTIAL Routine 04/19/2024 10:02 [...] Relevant to Health Maintenance Results * (ABNORMAL) Prothrombin 64377F mutation analysis (05/17/2024 8:22 AM EST) Prothrombin 50328B Mutation Analysis Heterozyg ous(A) 05/20/2024 12:14 PM EDT [facility] Comment: Both the wild type (WT) F2 gene and the c.*97G>A pathogenic variant ([id number]) were detected 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 Heterozygosity for the c.*97G>A variant is associated with overproduction of F2 prothrombin and an increased risk for venous thrombosis. Prothrombin thrombophilia is inherited in an autosomal dominant manner and adults heterozygous for the c.*97G>A variant have a 2 to 5-fold increased risk of thrombosis. The prevalence of c.*97G>A heterozygosity is 2-5% in individuals of descent. The variant is extremely rare in individuals of , , or descent. The clinical expression of prothrombin thrombophilia is variable. Many heterozygous individuals never develop thrombosis. Patients heterozygous for both c.*97G>A variant and the Factor V Leiden mutation often experience earlier onset of thrombosis that tends to be more severe than presence of the individual alleles. Genetic counseling is recommended to help determine the benefit of testing asymptomatic family members. This test was performed using the kristian(R) Factor II Test (Elle) - an in vitro diagnostic device that uses real-time quantitative Polymerase Chain Reaction (qPCR) for the detection and genotyping of the human Factor II (F2) gene. The test detects the presence of the wild type (WT) F2 gene and the pathogenic c.*97G>A variant (also known as [id number]) in genomic DNA isolated from whole blood specimens as an aid in diagnosing patients with suspected thrombophilia. The kristian(R) Factor II Test and the kristian z 480 analyzer are used together for automated amplification and detection. The limit of detection for this test is 0.1 ng/uL of genomic DNA (2.5 ng/PCR reaction). Test performed at [facility], [address] , [place], [place] ??[address] ? [phone] Tania Zepeda MD, PhD - It Support Specialist Blood Venous blood specimen / Unknown Venipuncture / Unknown 05/17/2024 8:22 AM EST 05/17/2024 12:39 PM EST Subramneto Brock MD LAB MOLECULAR DIAGN OSTICS ORDERABLES Final Result [facility] [address] [place] [address] * Vascular US duplex lower extremity venous insufficiency bilateral (05/15/2024 11:06 AM EST) Left GSK mariann 0.32 cm CV VAS LAB Left GSDC mariann 0.16 cm CV [facility]AS LAB Left GSMT mariann 0.50 cm CV VAS LAB Left GSPC mariann 0.24 cm CV VAS LAB Left GSPT mariann 0.35 cm CV VAS LAB Left SFJ Diameter 0.93 cm CV VAS LAB Left SSMC mariann 0.24 cm CV VAS LAB Left SSPC mariann 0.27 cm CV VAS LAB Right GSK mariann 0.31 cm CV VAS LAB Right GSDC mariann 0.25 cm CV VAS LAB Right GSMT mariann 0.40 cm CV VAS LAB Right GSPC mariann 0.20 cm CV VAS LAB Right GSPT mariann 0.44 cm CV VAS LAB Right SFJ Diameter 0.89 cm CV VAS LAB Right SSMC mariann 0.13 cm CV VAS LAB Right SSPC mariann 0.26 cm CV VAS LAB Right GSDC reflux 3,258 ms CV VAS LAB Anatomical Region Laterality Modality Vascular, Abdomen Ultrasound Narrative 05/15/2024 12:47 PM EST RIGHT. 1. ??No evidence of deep vein thrombosis. 2. ??The saphenofemoral junction, common femoral, femoral, and popliteal veins are competent. 3. ??No superficial venous thrombosis. 4. ??No venous reflux noted in the small saphenous vein. 5. ??Isolated 3.3 seconds of reflux in the distal below-knee greater saphenous vein. ??Otherwise, no venous reflux noted in the greater saphenous vein. LEFT. 1. ??No evidence of deep vein thrombosis. 2. ??The saphenofemoral junction, common femoral, femoral, and popliteal veins are competent. 3. ??No superficial venous thrombosis. 4. ??No venous reflux noted in the small saphenous vein. 5. ??No venous reflux noted in the greater saphenous vein. Right Lower Venous No evidence of deep vein thrombosis in the common femoral, deep femoral, proximal femoral, mid femoral, distal femoral, popliteal, greater saphenous, small saphenous, posterior tibial and peroneal veins of the right leg. The vessels showed compressibility. Interrogation showed phasic and spontaneous Doppler signals. Right Venous Insufficiency Duplex Multiple nonrefluxing branches seen. Left Lower Venous No evidence of deep vein thrombosis in the common femoral, deep femoral, proximal femoral, mid femoral, distal femoral, popliteal, greater saphenous, small saphenous, posterior tibial and peroneal veins of the left leg. The vessels showed compressibility. Interrogation showed phasic and spontaneous Doppler signals. Left Venous Insufficiency Duplex Multiple nonrefluxing branches seen. Crowning Hammer Operator Details A thorpe scale, color and doppler analysis ultrasound was performed. During the study longitudinal and transverse views were obtained. Pulsed wave doppler was performed. Dulce Alvarado MD CV VASCULAR PROCEDURES Final Res ult * External Vascular Ultrasound (05/15/2024) Anatomical Region Laterality Modality Ultrasound Provider [facility] CV VASCULAR PROCEDURES F inal Result * (ABNORMAL) Lipid panel with reflex to direct LDL (04/19/2024 10:02 AM EST) [facility] Cholesterol 249(H) 0 - 200 mg/dL LAB CHEMISTRY METHOD 04/19/2024 12:28 PM EST [facility] Triglycerides 122 0 - 150 mg/dL LAB CHEMISTRY METHOD 04/19/2024 12:28 PM [facility] HDL 46 >=40 mg/dL LAB CHEMISTRY METHOD 04/19/2024 12:28 PM [facility] LDL Calculated 179(H) 0 - 100 mg/dL LAB CHEMISTRY METHOD 04/19/2024 12:28 PM [facility] VLDL Cholesterol Twin 24.4 mg/dL LAB CHEMISTRY METHOD 04/19/2024 12:28 PM [facility] Non HDL Chol. (LDL+VLDL) 203(H) <145 mg/dL LAB CHEMISTRY METHOD 04/19/2024 12:28 PM [facility] Chol/HDL Ratio 5.4(H) 0.0 - 4.4 LAB CHEMISTRY METHOD 04/19/2024 12:28 PM [facility] Blood Venous blood specimen / Unknown Venipuncture / Unknown 04/19/2024 10:02 AM EST 04/19/2024 10:02 AM EST us Dulce Alvarado MD LAB BLOOD ORDERABLES Final Resul t [facility] [address] [place] [address], [place] [phone] * (ABNORMAL) CBC auto differential (04/19/2024 10:02 AM EST) WBC 7.0 4.8 - 10.8 K/mcL LAB HEMETOLOGY METHOD 04/19/2024 12:04 PM [facility] RBC 4.80 4.50 - 5.50 M/mcL LAB HEMETOLOGY METHOD 04/19/2024 12:04 PM [facility] Hemoglobin 14.5 13.5 - 17.5 g/dL LAB HEMETOLOGY METHOD 04/19/2024 12:04 PM [facility] Hematocrit 45.1 42.0 - 54.0 % LAB HEMETOLOGY METHOD 04/19/2024 12:04 PM [facility] MCV 94.9 79.0 - 98.0 FL LAB HEMETOLOGY METHOD 04/19/2024 12:04 PM [facility] MCH 30.5 27.0 - 32.0 pcg LAB HEMETOLOGY METHOD 04/19/2024 12:04 PM [facility] MCHC 32.2 32.0 - 37.0 g/dL LAB HEMETOLOGY METHOD 04/19/2024 12:04 PM [facility] RDW 12.5 11.0 - 15.0 % LAB HEMETOLOGY METHOD 04/19/2024 12:04 PM [facility] Platelets 230 130 - 400 K/mcL LAB HEMETOLOGY METHOD 04/19/2024 12:04 PM [facility] MPV 12.5(H) 7.0 - 11.0 FL LAB HEMETOLOGY METHOD 04/19/2024 12:04 PM [facility] NRBC 0.0 <1.0 % LAB HEMETOLOGY METHOD 04/19/2024 12:04 PM [facility] NRBC Absolute 0.00 <0.10 K/mcL LAB HEMETOLOGY METHOD 04/19/2024 12:04 PM [facility] Neutrophils Relative 48.7 % LAB HEMETOLOGY METHOD 04/19/2024 12:04 PM [facility] Lymphocytes Relative 38.6 % LAB HEMETOLOGY METHOD 04/19/2024 12:04 PM [facility] Monocytes Relative 8.5 % LAB HEMETOLOGY METHOD 04/19/2024 12:04 PM [facility] Eosinophils Relative 3.3 % LAB HEMETOLOGY METHOD 04/19/2024 12:04 PM [facility] Basophils Relative 0.6 % LAB HEMETOLOGY METHOD 04/19/2024 12:04 PM [facility] Immature Granulocytes Relative 0.3 % LAB HEMETOLOGY METHOD 04/19/2024 12:04 PM [facility] Neutrophils Absolute 3.43 1.50 - 7.00 K/mcL LAB HEMETOLOGY METHOD 04/19/2024 12:04 PM [facility] Lymphocytes Absolute 2.72 1.00 - 5.00 K/mcL LAB HEMETOLOGY METHOD 04/19/2024 12:04 PM [facility] Monocytes Absolute 0.60 0.20 - 1.00 K/mcL LAB HEMETOLOGY METHOD 04/19/2024 12:04 PM [facility] Eosinophils Absolute 0.23 0.00 - 0.50 K/mcL LAB HEMETOLOGY METHOD 04/19/2024 12:04 PM [facility] Basophils Absolute 0.04 0.00 - 0.20 K/mcL LAB HEMETOLOGY METHOD 04/19/2024 12:04 PM [facility] Immature Granulocytes Absolute 0.02 0.00 - 0.03 K/mcL LAB HEMETOLOGY METHOD 04/19/2024 12:04 PM [facility] Blood Venous blood specimen / Unknown Venipuncture / Unknown 04/19/2024 10:02 AM EST 04/19/2024 10:02 AM EST us Dulce Alvarado MD LAB BLOOD ORDERABLES Final Resul t [facility] [address] [place] [address], * Hemoglobin A1c (04/19/2024 10:02 AM EST) Hemoglobin A1C 5.8 <6.5 % LAB CHEMISTRY METHOD 04/19/2024 2:23 PM EST [facility] Mean Bld Glu Estim. 120 mg/dL LAB CHEMISTRY METHOD 04/19/2024 2:23 PM [facility] Blood Venous blood specimen / Unknown Venipuncture / Unknown 04/19/2024 10:02 AM EST 04/19/2024 10:02 AM EST us Dulce Alvarado MD LAB BLOOD ORDERABLES Final Resul t [facility] [address] [place] [address], [place] [phone] * (ABNORMAL) Comprehensive metabolic panel (04/19/2024 10:02 AM EST) Sodium 137 133 - 145 mmol/L LAB CHEMISTRY METHOD 04/19/2024 12:28 PM [facility] Potassium 4.9 3.5 - 5.5 mmol/L LAB CHEMISTRY METHOD 04/19/2024 12:28 PM [facility] Chloride 107 96 - 110 mmol/L LAB CHEMISTRY METHOD 04/19/2024 12:28 PM [facility] CO2 27 21 - 32 mmol/L LAB CHEMISTRY METHOD 04/19/2024 12:28 PM [facility] Anion Gap 3 3 - 11 LAB CHEMISTRY METHOD 04/19/2024 12:28 PM [facility] Glucose 107(H) 70 - 100 mg/dL LAB CHEMISTRY METHOD 04/19/2024 12:28 PM [facility] BUN 15 5 - 25 mg/dL LAB CHEMISTRY METHOD 04/19/2024 12:28 PM [facility] Creatinine 1.02 0.70 - 1.30 mg/dL LAB CHEMISTRY METHOD 04/19/2024 12:28 PM [facility] eGFR 85 >=60 mL/min/1. 73m2 LAB CHEMISTRY METHOD 04/19/2024 12:28 PM [facility] Comment:Calculation based on the??Chronic Kidney Disease Epidemiology Collaboration (CKD-EPI) equation refit??without adjustment for race. BUN/Creatinine Ratio 14.7 LAB CHEMISTRY METHOD 04/19/2024 12:28 PM [facility] Calcium 9.5 8.5 - 10.5 mg/dL LAB CHEMISTRY METHOD 04/19/2024 12:28 PM [facility] AST (SGOT) 22 10 - 42 unit/L LAB CHEMISTRY METHOD 04/19/2024 12:28 PM [facility] ALT (SGPT) 42 10 - 60 unit/L LAB CHEMISTRY METHOD 04/19/2024 12:28 PM [facility] Alkaline Phosphatase 66 42 - 121 unit/L LAB CHEMISTRY METHOD 04/19/2024 12:28 PM [facility] Total Protein 7.2 6.0 - 8.0 g/dL LAB CHEMISTRY METHOD 04/19/2024 12:28 PM [facility] Albumin 4.1 3.2 - 5.0 g/dL LAB CHEMISTRY METHOD 04/19/2024 12:28 PM [facility] Total Bilirubin 0.5 0.0 - 1.4 mg/dL LAB CHEMISTRY METHOD 04/19/2024 12:28 PM [facility] Blood Venous blood specimen / Unknown Venipuncture / Unknown 04/19/2024 10:02 AM EST 04/19/2024 10:02 AM EST Dulce Alvarado MD LAB BLOOD ORDERABLES Final Resul t [facility] [address] [place] [address], * Colonoscopy (11/22/2016) [facility] Colonoscopy No interpretation , abstracted Anatomical Region Laterality Modality Other Gisel Provider HEALTH MAINTENANCE Final Result * Hepatitis C Screening (05/28/2013) [facility] Hepatitis C Screening Abstracted us Historical Provider HEALTH MAINTENANCE Final Result from Last 3 Months or Most Recently Relevant to Health [place] [id number] [facility] Care Teams Hydraulic Technician Relationship Specialty Start Date End Date Dulce Alvarado MD [address] [place] [phone] PCP - General Internal Medicine 12/21/21
--- OUTSIDE RECORDS SUMMARY | 2024-06-13 10:42 | XMS_ITS | Data Portability ---
Author Organization [employer], [id number] Address [address] [place] [phone] Assessment No assessment recorded. Plan of Treatment [...] SNOMED-CT Code Diagnosis ICD10 Code Diagnosis Note [id number] [place] [id number] 09/26/2021 10:53:58 09/26/2021 14:49:29 [id number] [place] [id number] 03/25/2020 16:50:20 03/25/2020 19:25:18 Health Concerns Section Related Observation LastModified by Organization Detai ls LastModified Time None Recorded Concern Status LastModified by Organization Details LastModified Time None Recorded Advance Directives Directive None Recorded Payers Encounter Date Sequence Insurance Name Policy Number Policy Obrien Covered Member ID Obrien Member ID Guarantor Name 03/25/2020 1 [facility] (MEDICAID REPLACEMENT - HMO) GABRIELLE Price [id number] Sven Price 09/26/2021 1 [facility] (MEDICAID REPLACEMENT - HMO) GABRIELLE Price [id number] Sven Price
== END ==
LOC: HO.SL 09:58
PROVIDERS: PCP Internal Medicine; Visit Provider Nurse Practitioner Family
DX: G47.19 Other hypersomnia (principal); R06.83 Snoring
CPT/HCPCS: 95806

== ENCOUNTER → 2024-06-13 10:09 | Outpatient (BNV) | payer BC, SELFPAY | PROVIDERS: PCP Internal Medicine; Visit Provider Psychiatry & Neurology Neurology | DX: G47.33 Obstructive sleep apnea (adult) (pediatric) (principal) | CPT/HCPCS: 95806 ==

== ENCOUNTER 2024-11-15 08:03 | Outpatient (AMB) | payer BC, SELFPAY ==
--- NOTE | 2024-11-15 08:07 | A.OFFVIS_ITS ---
Vital Signs 11/15/24 08:08 Height 5 ft 9 in Weight 204 lb BMI 30.1 BP 120/82 Blood Pressure Location Lt brachial Position Sitting Pulse 62 Pulse Source Pulse Oximeter Pulse Oximetry (%) 94 Oxygen Delivery Method Room Air Intake Visit Reasons: 6 mo follow up Intake Note: Patient presents follow up Headache/Sleep. MRI in chart, HST scheduled for 06/13/24 Architect Intern Required: No Accompanied by: Self / Same As Patient Allergies Penicillins Allergy (Mild, Verified 11/15/24 08:11) Rash Medication List - Last Reconciled 11/15/24 by NGOC Ramirez rizatriptan 5 - 10 mg (0.5 - 1 x 10 mg) PO Q2H PRN 30 days sumatriptan succinate 50 - 100 mg orally at onset of headache, may repeat in 2 hrs PRN; max 2 tabs per day or 4 tabs/week (may take with Ibuprofen) 30 days HPI Comments Details: 58-year-old male presents for follow-up of migraine, mild SHANEL, and dizziness. Patient reports that he has been noticing a sense of dizziness, not right and space sensation, with quick head movements when in the pool.? He has never done vestibular therapy before. He is having sporadic migraine attacks. He never received the rizatriptan.? He still carries the sumatriptan with him most of the time, though he may forget at times. His 06/13/2024 HST showed AHI 5.9 per hour, with O2 iker 81% and SpO2 under 88% x1 0.8 minutes, with average SpO2 92%, and snoring recorded for 39% of sleep time. After review of the HST results, the patient declined to start PAP therapy; however, he was open to referral to ENT.? His appointment in [facility] is in July of 2025. ?He is interested in being referred elsewhere if they can see him sooner. Typical headache characteristics: Prodrome symptoms: denies Aura: Sees spots, flashes, blurry vision in his left eye x's a few minutes. Within 10 minutes headache starts. Pain intensity: severe, becomes more severe when sneezes, coughs, moves his head. Location, quality, characteristics: pressure in the mid-center of top of head. Associated symptoms: photophobia, not right in space dizziness, activity intolerance. Postdrome: none after 3-4 days. Triggers: stress Denies: Onset of headache triggered by positional changes, Valsalva, Exertion:, Sexual activity. Time of day: No specific time of day Duration and Frequency: Occurs 1-2 x's per month, and last 3-4 days PFSH Surgical History History of back surgery H/O prostatectomy History of surgical removal of meniscus of knee Family History Father HTN (hypertension) Hyperlipidemia Heart disease Prostate CA Mother Stroke Social History Alcohol intake: current Patient Tobacco Use Status: Never used Tobacco Physical Exam Vital Signs: Last Vital Signs Pulse 62 11/15/24 08:08 BP 120/82 11/15/24 08:08 Pulse Ox 94 11/15/24 08:08 Oxygen Delivery Method Room Air 11/15/24 08:08 BMI result Body Mass Index 30.1 Const Orientation/consciousness: patient oriented x3 Resp Effort & Inspection: normal respiratory effort and able to speak in complete sentences Neuro General: patient oriented x3 Cranial nerves: Yes CN's II-XII intact bilaterally Cognition (Neuro): normal cognition Gait exam (Neuro): Normal gait present Motor exam (neuro): 5/5 motor strength present throughout Pupils: Normal pupillary reactivity/response: bilateral Psych Appearance: grossly normal Mental Status: mental status grossly normal Speech and movement: Normal speech and movement present Results Reviewed Results Reviewed: MR/MR head/brain wo/w con IMPRESSION: 1. Several scattered foci of T2/FLAIR hyperintense signal in the supratentorial white matter with frontal lobe predominance are nonspecific but can be seen in the setting of migraine and/or chronic microvascular ischemia. 2. Otherwise unremarkable contrast-enhanced MRI of the brain. Assessment & Plan Assessment & Plan (1) Visual aura: Code(s): H53.9 - Unspecified visual disturbance Category: Medical (2) Snoring: Code(s): R06.83 - Snoring Category: Medical (3) Dizziness: Code(s): R42 - Dizziness and giddiness Category: Medical (4) Mild obstructive sleep apnea: Comment: 06/13/2024 home sleep study showed very mild sleep apnea. AHI 5.9 per hour (normal is AHI under 5 per hour) O2 iker 81%, with average SpO2 92%, and SpO2 under 88% for 1.8 minutes of study time and SpO2 under 90% for 11.7 minutes of study time. Snoring for 39% of study time. Code(s): G47.33 - Obstructive sleep apnea (adult) (pediatric) Category: Medical (5) Migraine with aura, not intractable, without status migrainosus: Code(s): G43.109 - Migraine with aura, not intractable, without status migrainosus Category: Medical Plan For mild SHANEL: * Reviewed HST results showing very mild SHANEL * Encouraged patient to sleep with head elevated * ENT consult as ordered * We will refer to ENT office since CT in hopes they can see patients sooner For dizziness: * We will refer patient for vestibular PT eval and treat For overall headache management: * Optimize good self-care, including but not limited to maintaining a healthy diet, adequate fluid intake, adequate sleep, and engaging in regular physical activity. * Track headaches, especially after any treatment regimen changes. Migraine aaTag is one of many headache tracking apps. * Information previously shared on non-pharmacological interventions which may help to alleviate headache attack burden. * For light sensitivity: Patient may benefit from trying blue light filtering glasses, green glasses, green light therapy. * Monitor dizziness. * Future considerations: Vestibular tx. For acute headache treatment: It is important to carry acute medications with the you at all times so that you can take it at the first sign of headache. * May continue Sumatriptan 100mg tab, 1/2 - 1 tab (50-100mg)- has not been consistently effective * Again trial Rizatriptan 10mg tab, 1/2 - 1 tab (5-10mg) at onset of headache, may repeat in 2 hours. Max of 2 tabs (200mg) per 24 hours. May adjunct with OTC Tylenol 650mg every 4 hours, Ibuprofen (liquigel) 600mg every 6 hours, or Naproxen (liquigel) 440mg every 12 hrs as needed. Potential adverse effects of triptans, include but are not limited to nausea, fatigue, chest tightness/tingling (usually passes within a few minutes), medication overuse headaches. Previous acute migraine medication trials: Sumatriptan 100 mg-not consistently effective Acute migraine medication contraindications: None at this time Future considerations: Sumatriptan nasal spray. Patient notes she would not be interested in sumatriptan injection at this point. For headache prevention medication: Patient may hold Riboflavin 400mg qam May hold Magnesium 400mg qhs Previous migraine prevention medication trials: None Migraine prevention medication contraindications: None at this time F/u upon review of above. Pt to follow-up in 6 months or sooner prn. Orders: Orders PT Evaluation and Treatment Today G43.109 - Migraine with aura, not intractable, without status migrainosus, R42 - Dizziness and giddiness Referrals Ear/Nose/Throat Referral G47.33 - Obstructive sleep apnea (adult) (pediatric), R06.83 - Snoring Medications: Refilled sumatriptan succinate 50 - 100 mg orally at onset of headache, may repeat in 2 hrs PRN; max 2 tabs per day or 4 tabs/week (may take with Ibuprofen) 9 tabs 6RF migraine headache 30 days rizatriptan max 2 tabs per day or 4 tabs per week 5 - 10 mg (0.5 - 1 x 10 mg) PO Q2H PRN 12 tabs 3RF migraine headache 30 days Coding Level of Care Code Est Pt Level 4 (25162) Diagnoses Visual aura H53.9 Snoring R06.83 Dizziness R42 Mild obstructive sleep apnea G47.33 Migraine with aura, not intractable, without status migrainosus G43.109
[2024-11-15 08:08] VITALS: BP 120/82; PULSE 62; O2SAT 94; BMI 30.1
--- OUTSIDE RECORDS SUMMARY | 2024-11-15 08:11 | XMS_ITS ---
Author Name [facility] Organization Unknown Care Team Organization Name Specialty Phone Email Start Date End Da te [facility] Dulce Alvarado Primary Care 05/18/2022 024 [facility] Nikki Banks Primary Care 01/18/2022 4
--- OUTSIDE RECORDS SUMMARY | 2024-11-15 08:11 | XMS_ITS | Encounter Summary ---
Author Organization [facility] Address [address] [place] [address] Phone Care Team Providers Care Study Assistant Name Role Phone Dulce Alvarado MD Primary Care Provider [phone] Sam Dominguez MD Unavailable Alan Bonner MD Unavailable Yelitza Gtz MD Unavailable [phone] Sam More MD Unavailable [phone] Encounter Details Date Type Department Care Team (Late st Contact Info) Description 12/01/2022 Procedure Pass [facility] Periop [address] [place] [address] Social History Tobacco Use Types Packs/Day Years Used Date Smoking Tobacco: Never Smokeless Tobacco: Never Alcohol Use Standard Drinks/Week Comments Yes 8 (1 standard drink = 0.6 oz pur e alcohol) Education Answer Date Recorded Are you interested in more education? Not on errol e 07/07/2022 Are you concerned about learning? Not on file 07/07/2022 No 07/07/2022 No 07/07/2022 Digital Access Answer Date Recorded No 08/07/2022 No 08/07/2022 Reliable internet access at home? Not on file 08/07/2022 Device with a working camera? Not on file Intimate Partner Violence Answer Date R ecorded Are you denied basic needs s uch as food, clothing, or medical care? No 12/01/2022 In the past 12 months have y ou been in a relationship with a person who hurts, threatens, or tries to control you? No 12/01/2022 Are you denied basic needs s uch as food, clothing, or medical care? No 12/01/2022 In the past 12 months have y ou been in a relationship with a person who hurts, threatens, or tries to control you? No 12/01/2022 Sex and Gender Information Value Date Recorded Sex Assigned at Male 06/06/2022 8:54 AM EDT Legal Sex Male 8:46 AM EDT Gender Identity Male 06/06/2022 8:48 AM EDT Sexual Orientation Straight 06/06/2022 8: 54 AM EDT documented as of this encounter Plan of Treatment Upcoming Encounters Date Type Department Care Team (Late st Contact Info) Description 05/09/2025 11:00 AM EST Telemedicine [facility] Urology [address] [facility] [address] Zamzam Bacon PA-C [address] [place] [id number] [email or web address] 05/06/2026 1:20 PM EST Office Visit [facility] Urology [address] [place], [place] [address] [address] Sam More MD [address] [place] [address] [address] [place], [place] [email or web address] documented as of this encounter Visit Diagnoses Not on filedocumented in this encounter Care Teams Study Assistant Relationship Specialty Start Date End Date Dulce Alvarado MD [address] [place] [phone] PCP - General Internal Medicine 06/06/22 Sam Dominguez MD [address] [place] [address], [address] [address] [email or web address] Urology 06/06/22 Alan Bonner MD [address] [place] [id number] [email or web address] Oncology 06/07/22 Yelitza Gtz MD [address] [facility] Oncology, [address] [address] [email or web address] 06/07/22 Sam More MD [address] [place] [address] Oncology, [address] [address] [email or web address] 06/28/22 documented as of this encounter Additional Source Comments The information contained in this document represents components of the legal health record. It is not the complete legal health record.[facility]
--- OUTSIDE RECORDS SUMMARY | 2024-11-15 08:12 | XMS_ITS | Clinical Summary ---
Author Organization [facility] Address [address] [place] [address] Phone Care Team Providers Care Lace Machine Operator Name Role Phone Dulce Alvarado MD Primary Care Provider [phone] Sam Dominguez MD Unavailable Alan Bonner MD Unavailable Yelitza Gtz MD Unavailable [phone] Sam More MD Unavailable [phone] Allergies Active Allergy Reactions Criticality Noted Date Comments Penicillins 06/27/2022 Medications rosuvastatin (CRESTOR) 5 MG tablet Take 1 tablet by mouth every morning. 08/30/2022 Active tadalafiL (CIALIS) 20 MG tablet Take 1/2 tablet twice per week (ex. Sat and Wed) 4 tablet 11 05/08/2024 Active Active Problems Problem Noted Date Diagnosed Date Psoriasis 12/08/2022 12/08/2022 Multiple thyroid nodules 12/08/2022 023 Overview (12/08/2022): [facility] Endocrinology; FNA 01/31 indeterminate, Afirma result benign (4% chance of false negative), recommend f/u u/s in 1yr Prostate carcinoma 04/29/2022 Cancer Staging:Clinical stage from 02/21/2022:Stage IIC(cT1c, cN0, cM0, PSA: 6.4, Grade Group: 4, 02/21/22) - Signed by Alan Bonner MD on 06/21/2022 History of COVID-19 03/25/2020 12/08/2022 Overview (12/08/2022): 04/02 Chronic back pain 12/07/2019 12/08/2022 Overweight (BMI 25.0-29.9) 11/06/201712/08 Erectile dysfunction 11/06/2017 12/08/2022 Obstructive sleep apnea 01/30/2017 12/09/19 23 Overview (12/08/2022): [facility] Polysomnogram: Date 01/24/2017; SE 78%; SM 79%; REM 25%; RDI 7 (AHI 6), worse in REM (RDI 22 - AHI 16), Central apneas 2; Obstructive apneas 3; Mixed apneas 0; hypopneas 26; RERAs 11; average oxygen saturation 95% (lowest 89% - without saturations <88% for 5% or more of study); PLMs 3. Hyperlipidemia 07/31/2015 12/08/2022 Overview (12/08/2022): Last Assessment & Plan: The patient is now on full dose Crestor for his hyperlipidemia. Dietary modification and increased exercise certainly will help as well with long-term cardiovascular risk reduction. The patient is on board with this plan Chest pain 10/05/2010 12/08/2022 Overview (12/08/2022): 09/07/10 cardiac cath with normal anatomy and nl LVF, normal ETT 07/2015 Immunizations Immunization Administration Dates Next Due INFLUENZA, SPLIT VIRUS, TRIVALENT W/ PRESERVATIV E IM 12/26/2013 Influenza Quadrivalent MDCK Preservative Free IM 12/06/2019 Tdap 05/28/2013 Family History Medical History Relation Comments Prostate cancer Father Relation Status Comments Father Social History Tobacco Use Types Packs/Day Years Used Date Smoking Tobacco: Never Smokeless Tobacco: Never Tobacco Cessation:Counseling Given: Not Answered Alcohol Use Standard Drinks/Week Comments Yes 8 [...] Orientation Straight 06/06/2022 8: 54 AM EDT Last Filed Vital Signs Vital Sign Reading Time Taken Comments Blood Pressure 124/73 05/08/2024 2:57 PM EST Pulse 77 05/08/2024 2:57 PM EST Temperature 36.9 C (98.4 F) 12/08/2022 10:23 AM EDT Respiratory Rate 16 12/02/2022 5:32 AM EDT Oxygen Saturation 95% 12/02/2022 12:09 PM EDT Inhaled Oxygen Concentration - - Weight 92.1 kg (203 lb) 05/08/2024 2:57 PM EST Height 175.3 cm (5' 9 ) 05/08/2024 2:57 PM EST Body Mass Index 29.98 05/08/2024 2:57 PM EST Plan of Treatment Upcoming Encounters Date Type Department Care Team (Late st Contact Info) Description 05/09/2025 11:00 AM EST Telemedicine [facility] Urology [address] [place] [address] Zamzam Bacon PA-C [address] [place] [address] [email or web address] 05/06/2026 1:20 PM EST Office Visit [facility] Urology [address] [address] Sam More MD [address] [facility] [address] [place] [address] [email or web address] U Health Maintenance Due Date Last Done Comments DEPRESSION SCREENING 1976 HEPATITIS C SCREENING 1982 HIV ONE-TIME SCREENING (18-6 5 YEARS) 1982 PNEUMOCOCCAL VACCINES (50+ years) (1 of 2 - PCV) 12/11/1983 ZOSTER VACCINES (1 of 2) 12/11/1983 COLOGUARD 2009 COLONOSCOPY 2009 COLORECTAL CANCER SCREENING 2009 FIT TEST 2009 FOBT 2009 SIGMOIDOSCOPY 2009 VIRTUAL COLONOSCOPY 2009 Adult Td,Tdap Booster 05/29/2023 05/28/2013 COVID-19 VACCINE (4 - 2023-2 5 season) 2023 01/29/2021, 07/23/2020, 06/25/2020 SCREENING FOR DIABETES 12/02/2025 12/02/2022 LIPID PANEL 04/19/2029 04/19/2024, 05/12/2022 SMOKING STATUS SCREENING (On ce After 26 Yrs) Completed 05/08/2024 HEPATITIS A VACCINES Aged Out No long er eligible based on patient's age to complete this topic HIB VACCINES Aged Out No longer eligi ble based on patient's age to complete this topic MENINGOCOCCAL VACCINES (ACWY) Aged Out No longer eligible based on patient's age to complete this topic MENINGOCOCCAL VACCINES (B) Aged Out N o longer eligible based on patient's age to complete this topic Medical Devices Not on file Insurance [employer] OUT OF STATE PPO [employer] OUT OF STATE PPO [facility] OUT OF STATE PPO Care Teams Lace Machine Operator Relationship Specialty Start Date End Date Dulce Alvarado MD [address] [place] [phone] PCP - General Internal Medicine 06/06/22 Sam Dominguez MD [address] [place] [address], [address] [address] [email or web address] 06/06/22 Alan Bonner MD [address] [place] [phone] [email or web address] Oncology 06/07/22 Yelitza Gtz MD [address] [place] [address] Oncology, [address] [address] [email or web address] Medical Oncology 06/07/22 Sam More MD [address] [place] [address] for Oncology, [address] [address] [phone] (work) [email or web address] Urology 06/28/22 Additional Source Comments The information contained in this document represents components of the legal health record. It is not the complete legal health record.[facility]
--- OUTSIDE RECORDS SUMMARY | 2024-11-15 08:12 | XMS_ITS | Clinical Summary ---
Author Organization [facility] [address] [facility] Address [address] [place] [phone] Phone Care Team Providers Care Golf Club Weighter Name Role Phone Dulce Alvarado MD Primary Care Provider [phone] Allergies Active Allergy Reactions Criticality Noted Date [...] Active Problems Problem Noted Date Diagnosed Date Prothrombin gene mutation ([facility]/HCC V24) 06/22/19 25 Assessment & Plan (06/21/2024 9:14 AM EDT): Multiple thyroid nodules 03/18/2024 Overview (03/18/2024): [facility] Endocrinology; FNA 01/31 indeterminate, Afirma result benign (4% chance of false negative), recommend f/u u/s in 1yr Prostate carcinoma (CMS/HCC V24, CMS/HCC V28) Elevated PSA 12/17/2020 History of COVID-19 03/25/2020 [...] patient is on board with this plan Assessment & Plan (06/21/2024 9:14 AM EDT): Orders: Lipid panel with reflex to direct LDL; Future Comprehensive metabolic panel; Future Chest pain 10/05/2010 Overview (03/18/2024): 09/07/10 cardiac cath with normal anatomy and nl LVF, normal ETT 07/2015 Immunizations Name Administration Dates Next Due Influenza Quadravalent, MDCK , 0.5ml, preservative free (Flucelvax) 6mo and older 01/11/2023,12/06/2019 Influenza trivalent, with pr eservative (Fluzone; Afluria) 6mo and older 12/26/2013 Tdap Tetanus diptheria acell ular pertussis (Boostrix; Adacel) 7yo and older 06/21/2024,05/28/2013 Surgical History Surgery Date Site/Laterality Comments BACK [...] Packs/Day Years Used Date Smoking Tobacco: Never Passive Smoke Exposure: Never Smokeless Tobacco: Never Tobacco Cessation:Counseling Given: [...] ed Within the last 3 months, ho chasity many times did you visit the emergency [...] your loved ones. For example, child care sitter or elderly care for an older adult? [...] Sign Reading Time Taken Comments Blood Pressure 100/60 07/29/2024 9:02 AM EDT Pulse 76 07/29/2024 9:02 AM EDT Temperature 36.6 C (97.8 F) 06/21/2024 8:06 AM EDT Respiratory Rate 16 07/29/2024 9:02 AM EDT Oxygen Saturation 97% 05/16/2024 1:13 PM EST Inhaled Oxygen Concentration - - Weight 94.3 kg (208 lb) 07/29/2024 9:02 AM EDT Height 175.3 cm (5' 9 ) 07/29/2024 9:02 AM EDT Body Mass Index 30.72 07/29/2024 9:02 AM EDT Plan of Treatment Health Maintenance Due Date Last Done Comments Hepatitis B Vaccines (1 of 3 - 19+ 3-dose series) 12/11/1983 Zoster Vaccines (1 of 2) 12/11/1983 Pneumococcal Vaccine: 50+ Years (1 of 1 - PCV) 2014 HIV Screening 02/13/2022 COVID-19 Vaccine (4 - 5-2 6 season) 2024 01/29/2021, 07/23/2020, 06/25/2020 Influenza Vaccine (#1) 2024 , 12/06/2019, 12/26/2013 Social Influencers of Health Screening 04/18/2025 04/18/2024 Colorectal Cancer Screening: Colonoscopy 11/22/2026 11/22/2016, 11/22/2016 Cholesterol Screening (Lipid Panel) 06/21/2029 06/21/2024, 04/19/2024, 08/15/2022 DTaP,Tdap,and Td Vaccines (3 - Td or Tdap) 06/21/2034 06/21/2024, 05/28/2013 RSV Immunization Adult Patients (1 - 1-dose 75+ series) 12/11/2039 Hepatitis C Screening Completed 05/28/2013 Depression Screening Completed 04/18/2024 HIB Vaccines Aged Out No longer eligi [...] age to complete this topic Meningococcal B Vaccine Aged Out No l onger eligible based on patient's age to complete this topic RSV Immunization Patients Under 20 months Aged Out No longer eligible b ased on patient's age to complete this topic Varicella Vaccines Aged Out No longer eligible based on patient's age to complete this topic Procedures Procedure Name Priority Date/Time Associated Diagnosis Comments LIPID PANEL WITH REFLEX TO DIRECT LDL Routine 06/21/2024 9:41 AM EDT Mixed hyperlipidemia COLONOSCOPY Routine 11/22/2016 HEPATITIS C SCREENING Routine 05/28/2013 from Last 3 Months or Most Recently Relevant to Health Maintenance Results * (ABNORMAL) Lipid panel with reflex to direct LDL (06/21/2024 9:41 AM EDT) [facility] Cholesterol 198 0 - 200 mg/dL LAB CHEMISTRY METHOD 06/21/2024 1:18 PM EDT [facility] Triglycerides 127 0 - 150 mg/dL LAB CHEMISTRY METHOD 06/21/2024 1:18 PM EDT [facility] HDL 52 >=40 mg/dL LAB CHEMISTRY METHOD 06/21/2024 1:18 PM EDT [facility] LDL Calculated 121(H) 0 - 100 mg/dL LAB CHEMISTRY METHOD 06/21/2024 1:18 PM EDT [facility] VLDL Cholesterol Twin 25.4 mg/dL LAB CHEMISTRY METHOD 06/21/2024 1:18 PM EDT [facility] Non HDL Chol. (LDL+VLDL) 146(H) <145 mg/dL LAB CHEMISTRY METHOD 06/21/2024 1:18 PM EDT [facility] Chol/HDL Ratio 3.8 0.0 - 4.4 LAB CHEMISTRY METHOD 06/21/2024 1:18 PM EDT [facility] Blood Venous blood specimen / Unknown Venipuncture / Unknown 06/21/2024 9:41 AM EDT 06/21/2024 9:41 AM EDT Dulce Alvarado MD LAB BLOOD ORDERABLES Final Resul t [facility] [address] [place] [address], * Colonoscopy (11/22/2016) [facility] Colonoscopy No interpretation , abstracted Anatomical Region Laterality Modality Other Historical Provider HEALTH MAINTENANCE Final Result * Hepatitis C Screening (05/28/2013) [facility] Hepatitis C Screening Abstracted Gisel Wharton MD HEALTH MAINTENANCE Final Result from Last 3 Months or Most Recently Relevant to Health [place] [id number] [facility] Care Teams Golf Club Weighter Relationship Specialty Start Date End Date Dulce Alvarado MD [address] [place] [phone] PCP - General Internal Medicine 12/21/21
== END 2024-11-15 08:48 | disposition home or self-care (01) ==
LOC: HO.HSMS 08:04
PROVIDERS: PCP Internal Medicine; Visit Provider Nurse Practitioner Family
DX: H53.9 Unspecified visual disturbance (principal); R06.83 Snoring; R42 Dizziness and giddiness; G47.33 Obstructive sleep apnea (adult) (pediatric); G43.109 Migraine with aura, not intractable, without status migrainosus
CPT/HCPCS: 99214